=== PATIENT | male | born 1940 | race Caucasian/White ===

== ENCOUNTER → 2016-10-16 | Outpatient (CLI) | payer OTHER | LOC: BHFA 10:45 | PROVIDERS: ATTEND Internal Medicine Interventional Cardiology | DX: I25.10 Atherosclerotic heart disease of native coronary artery without angina pectoris (principal); Z95.0 Presence of cardiac pacemaker; Z95.5 Presence of coronary angioplasty implant and graft; R42 Dizziness and giddiness ==

== ENCOUNTER → 2016-11-28 | Outpatient (CLI) | payer OTHER | LOC: BHFA 10:15 | PROVIDERS: ATTEND Internal Medicine Cardiovascular Disease | DX: I25.10 Atherosclerotic heart disease of native coronary artery without angina pectoris (principal); R00.2 Palpitations; I10 Essential (primary) hypertension; E78.5 Hyperlipidemia, unspecified ==

== ENCOUNTER → 2016-11-30 | Outpatient (CLI) | payer OTHER | LOC: BHFA 09:30 | PROVIDERS: ATTEND Internal Medicine Cardiovascular Disease | DX: R00.2 Palpitations (principal) ==

== ENCOUNTER → 2017-04-10 | Outpatient (CLI) | payer OTHER | LOC: BMCIMAGING 08:25 | PROVIDERS: ATTEND Orthopaedic Surgery | DX: M17.11 Unilateral primary osteoarthritis, right knee (principal) ==

== ENCOUNTER → 2017-05-17 | Outpatient (CLI) | payer OTHER | LOC: FCPNEURO 21:00 | PROVIDERS: ATTEND Psychiatry & Neurology Sleep Medicine | DX: G47.52 REM sleep behavior disorder (principal); G47.33 Obstructive sleep apnea (adult) (pediatric) ==

== ENCOUNTER → 2017-07-23 | Outpatient (CLI) | payer OTHER | LOC: BHFA 11:00 | PROVIDERS: ATTEND Internal Medicine Interventional Cardiology | DX: I25.10 Atherosclerotic heart disease of native coronary artery without angina pectoris (principal); I10 Essential (primary) hypertension ==

== ENCOUNTER → 2017-08-08 | Outpatient (CLI) | payer OTHER | LOC: FIMAGING 12:16 | PROVIDERS: ATTEND Physician Assistant | DX: K59.00 Constipation, unspecified (principal); Z95.0 Presence of cardiac pacemaker ==

== ENCOUNTER → 2017-08-20 | Outpatient (CLI) | payer OTHER | LOC: FIMAGING 09:22 | PROVIDERS: ATTEND Internal Medicine | DX: K59.00 Constipation, unspecified (principal); I87.8 Other specified disorders of veins; M51.36 Other intervertebral disc degeneration, lumbar region; M25.551 Pain in right hip ==

== ENCOUNTER 2018-01-07 13:58 | Observation (INO) | payer OTHER ==
--- NOTE | 2018-01-07 14:13 | CPEKG ---
Heart Rate: 55 RR Interval: 1091 P-R Interval: 172 QRSD Interval: 168 QT Interval: 440 QTC Interval: 421 P [place]: -8 QRS [place]: -64 T Wave [place]: -19 EKG Severity - ABNORMAL ECG - EKG Impression: SINUS RHYTHM EKG Impression: RBBB AND LAFB Electronically Signed By: Pura Weiss 07-Jan-2018 20:30:59
[2018-01-07 14:35] LABS: PLATELET COUNT 197 10^3/uL (150-400)
--- NOTE | 2018-01-07 14:51 | EDPHY ---
H & P Stated Complaint: CHEST TIGHTNESS WITH CARDIAC HX Time Seen by Provider: 01/07/18 14:21 HPI/ROS: CHIEF COMPLAINT: Chest pressure HISTORY OF PRESENT ILLNESS: 77-year-old male with CAD, s/p coronary stenting x4 in 2013 presents with chest pressure. Doing usual activities around the house today when he had SSCP x 3, each episode lasted approximately 30 sec. Associated with some anxiety. He took Ativan 0.5 mg orally after the 1st episode without relief. ASA taken today. No other associated symptoms. No known alleviating or aggravating factors. He presented in 2013 after a syncopal episode and was diagnosed with coronary artery disease disease. Nuclear stress test and 2015 was unremarkable. No subsequent cardiac testing. No prior chest pain. REVIEW OF SYSTEMS: complete 10 point ROS negative except at noted in the HPI - Personal History Current Tetanus Diphtheria and Acellular Pertussis (TDAP): Yes Tetanus Vaccine Date: 2013 - Medical/Surgical History Hx Asthma: No Hx Chronic Respiratory Disease: No Hx Diabetes: No Hx Cardiac Disease: Yes Hx Renal Disease: No Hx Cirrhosis: No Hx Alcoholism: No Hx HIV/AIDS: No Hx Splenectomy or Spleen Trauma: No Other PMH: HTN, RBBB, BPH, APPY, BILAT HERNIA REPAIR, CAD, STENTS, PACEMAKER FOR A BISFASCICULAR BLOCK- 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 - Physical Exam Exam: General Appearance: Alert, pleasant Eyes: Pupils equal and round, no conjunctival pallor or injection ENT, Mouth: Mucous membranes moist Neck: Normal inspection Respiratory: Lungs are clear to auscultation Cardiovascular: Regular rate and rhythm Gastrointestinal: Abdomen is soft and nontender Neurological: A&O, nonfocal, normal gait Skin: Warm and dry Extremities: Normal inspection Psychiatric: Mood and affect normal Constitutional: Initial Vital Signs Temperature (C) 36.8 C 01/07/18 14:01 Heart Rate 60 01/07/18 14:01 Respiratory Rate 17 01/07/18 14:01 Blood Pressure 139/57 H 01/07/18 14:01 O2 Sat (%) 94 01/07/18 14:01 O2 Delivery Mode Room Air Allergies/Adverse Reactions: No Known Allergies Allergy (Verified 01/07/18 13:59) Home Medications: Medication Instructions Recorded Aspirin [Aspirin 81mg (*)] 81 mg PO DAILY 08/18/14 Clopidogrel Bisulfate [Plavix (*)] 75 mg PO DAILY 08/18/14 Finasteride [Proscar 5 MG (*)] 5 mg PO DAILY 08/18/14 Propylene Glycol [Systane Balance] 1 drop EACHEYE PRN PRN 08/18/14 Rosuvastatin Calcium [Crestor 20mg 20 mg PO DAILY 08/18/14 (*)] Solifenacin Succinate [Vesicare 5 5 mg PO DAILY 08/18/14 MG (*)] Tamsulosin HCl [Flomax 0.4 MG (*)] 0.4 mg PO DAILY 08/18/14 Valsartan [Diovan (*)] 40 mg PO DAILY 08/18/14 Acetaminophen [Tylenol 325mg (*)] 325 mg PO DAILY PRN 01/07/18 LORazepam [Ativan (*)] 0.25 mg PO DAILY PRN 01/07/18 Melatonin 6mg Cr 6 mg PO HS 01/07/18 Melatonin [Melatonin 3 MG (*)] 3 mg PO HS 01/07/18 Ranitidine HCl [Zantac] 150 mg PO BID 01/07/18 Temazepam 7.5 mg PO HS 01/07/18 cycloSPORINE 0.05% [Restasis Opht 1 drop EACHEYE BID 01/07/18 Drops(*)] Medical Decision Making - Diagnostics EKG Interpretation: EKG interpreted by me reveals sinus rhythm, rate 55, right bundle branch block and left anterior fascicular block. Similar to EKG dated 02/03/2016. Imaging Results: Imaging Impressions Chest X-Ray 01/07/18 14:22 Impression: No acute findings in the chest. Chest x-ray independently reviewed by me reveals no acute disease. ED Course/Re-evaluation: This patient with known CAD presents with episodic chest pain. Stat EKG reveals no evidence of ischemia. During my initial evaluation, the patient had a run of tachycardia. He was asymptomatic during this brief episode. On review of the toy designer, he was briefly in atrial fibrillation, with a ventricular rate of 150. Pacemaker was interrogated and he had no further dysrhythmia on review. The patient was asymptomatic throughout his emergency department stay. Initial troponin is 0. Given extensive coronary artery disease and no prior history of chest discomfort, I feel that he should be admitted for further evaluation. The hospitalist service was consulted for admission for chest pain. Differential Diagnosis: Differential diagnosis includes though it is not limited to pneumonia, pneumothorax, pulmonary embolism, aortic dissection, pericarditis, acute coronary syndrome. - Data Points Laboratory Results: Laboratory Results 01/07/18 14:16 01/07/18 14:16 01/07/18 01/07/18 01/07/18 14:21 14:16 14:16 WBC RBC Hgb Hct MCV MCH MCHC RDW Plt Count MPV Neut % (Auto) Lymph % (Auto) Andrews % (Auto) Eos % (Auto) Baso % (Auto) Nucleat RBC Rel Count Absolute Neuts (auto) Absolute Lymphs (auto) Absolute Monos (auto) Absolute Eos (auto) Absolute Basos (auto) Absolute Nucleated RBC Immature Gran % Immature Gran # PT Pending INR Pending Sodium 143 mEq/L mEq/L (135-145) Potassium 4.3 mEq/L mEq/L (3.3-5.0) Chloride 103 mEq/L mEq/L (97-110) Carbon Dioxide 25 mEq/l mEq/l (22-31) Anion Gap 15 mEq/L mEq/L (8-16) BUN 15 mg/dL mg/dL (7-23) Creatinine 0.9 mg/dL mg/dL (0.7-1.3) Estimated GFR > 60 Glucose 93 mg/dL mg/dL (70-100) Calcium 9.2 mg/dL mg/dL (8.5-10.4) POC Troponin I 0.00 ng/mL ng/mL (0.00-0.08) NT-Pro-B Natriuret Pep 85 pg/mL pg/mL (0-450) 01/07/18 14:16 WBC 8.49 10^3/uL 10^3/uL (3.80-9.50) RBC 4.87 10^6/uL 10^6/uL (4.40-6.38) Hgb 15.4 g/dL g/dL (13.7-17.5) Hct 45.1 % % (40.0-51.0) MCV 92.6 fL fL (81.5-99.8) MCH 31.6 pg pg (27.9-34.1) MCHC 34.1 g/dL g/dL (32.4-36.7) RDW 12.0 % % (11.5-15.2) Plt Count 197 10^3/uL 10^3/uL (150-400) MPV 10.4 fL fL (8.7-11.7) Neut % (Auto) 76.7 % H % (39.3-74.2) Lymph % (Auto) 14.3 % L % (15.0-45.0) Andrews % (Auto) 7.7 % % (4.5-13.0) Eos % (Auto) 1.1 % % (0.6-7.6) Baso % (Auto) 0.1 % L % (0.3-1.7) Nucleat RBC Rel Count 0.0 % % (0.0-0.2) Absolute Neuts (auto) 6.52 10^3/uL H 10^3/uL (1.70-6.50) Absolute Lymphs (auto) 1.21 10^3/uL 10^3/uL (1.00-3.00) Absolute Monos (auto) 0.65 10^3/uL 10^3/uL (0.30-0.80) Absolute Eos (auto) 0.09 10^3/uL 10^3/uL (0.03-0.40) Absolute Basos (auto) 0.01 10^3/uL L 10^3/uL (0.02-0.10) Absolute Nucleated RBC 0.00 10^3/uL 10^3/uL (0-0.01) Immature Gran % 0.1 % % (0.0-1.1) Immature Gran # 0.01 10^3/uL 10^3/uL (0.00-0.10) PT INR Sodium Potassium Chloride Carbon Dioxide Anion Gap BUN Creatinine Estimated GFR Glucose Calcium POC Troponin I NT-Pro-B Natriuret Pep Point of Care Test Results: Chemistry 01/07/18 14:21 POC Troponin I 0.00 ng/mL ng/mL (0.00-0.08) Departure - Departure Disposition: [facility] Inpatient Acute Clinical Impression: Chest pain Qualifiers: Chest pain type: precordial pain Qualified Code(s): R07.2 - Precordial pain CAD (coronary artery disease) Qualifiers: Coronary Disease-Associated Artery/Lesion type: [place] artery [place] vs. transplanted heart: [place] heart Associated angina: angina presence unspecified Qualified Code(s): I25.10 - Atherosclerotic heart disease of [place] coronary artery without angina pectoris Condition: Good
[2018-01-07] MEDS ORDERED: ONDANSETRON DISINTEGRATING 4 MG TAB PO PRN (15:08)
[2018-01-07] MEDS ORDERED: ONDANSETRON 4 MG/2 ML VIAL IVP PRN (15:08)
[2018-01-07] MEDS ORDERED: ACETAMINOPHEN 325 MG TAB PO PRN (15:08)
[2018-01-07] MEDS ORDERED: Propylene Glycol [Systane Balance] EACHEYE PRN (15:46)
[2018-01-07] MEDS ORDERED: LORazepam 0.5 MG TAB PO PRN (15:46)
[2018-01-07 15:58] LABS: INR 1.1 (0.83-1.16); PROTIME(PATIENT) 14.4 SEC (12.0-15.0)
[2018-01-07] MEDS ORDERED: ASPIRIN 325 MG TAB PO ONE (16:00)
--- NOTE | 2018-01-07 16:45 | GHP ---
[f rep st] HISTORY AND PHYSICAL DATE OF ADMISSION: 01/07/2018 CHIEF COMPLAINT: Chest pain. HISTORY OF PRESENT ILLNESS: The patient is a 77-year-old male with a history of coronary artery dise ase, status post 4 stents in 2013, at which time he presented with syncope, comes to the emergency de partment with chest pain. He has had 3 episodes of transient chest pain, which started at 7 o'clock this morning while at rest. He describes this pain as a severe tightness across his chest. There is no radiation. He has no associated diaphoresis, shortness of breath, or nausea. Each episode subsi ded within 1-2 minutes. He has had no recurrent chest pain, remains chest pain-free in the emergency department at this time. He also has a history of sleep apnea and uses CPAP. He is on dual antipla telet therapy. In addition, he has a pacemaker. In the emergency department, he was noted to have a brief run of sinus versus supraventricular tachycardia. His pacemaker provider relations representative has just arriv ed to interrogate his pacemaker, and he will be admitted to the PCU for further evaluation. PAST MEDICAL HISTORY: 1. Coronary artery disease, status post stent 4 stents in 2013. 2. Hypertension. 3. Obstructive sleep apnea, on CPAP. 4. Presence of a pacemaker. 5. Benign prostatic hypertrophy. 6. Anxiety. 7. History of PVCs, PACs. PAST SURGICAL HISTORY: Appendectomy, bilateral hernia repairs, hemorrhoidectomy. FAMILY HISTORY: His mother from ovarian cancer. His father from prostate cancer. His fat her also had history of coronary disease diagnosed in his 80s. 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 He denies alcohol or tobacco use. He lives independently with his . MEDICATIONS: Please see [facility] for completed outpatient medication list. ALLERGIES: He has no known drug allergies. REVIEW OF SYSTEMS: 10 point review of systems reviewed is negative, except as per HPI. OBJECTIVE: VITAL SIGNS: Temperature is 36.8, blood pressure 139/57, heart rate 60, respiratory rate 17. He is 94% on room air. GENERAL: Patient is awake, alert, oriented in no distress. HEENT: He ad is atraumatic, normocephalic. Pupils equal, round, reactive to light. Extraocular muscle intact. Oropharynx is clear. Mucous membranes are moist. Oropharynx is clear. NECK: Supple. No JVD. H EART: Regular rate and rhythm without murmur. LUNGS: Clear to auscultation bilaterally. ABDOMEN: Soft, nontender. Normoactive bowel sounds. EXTREMITIES: Without cyanosis, clubbing, or edema. NE UROLOGIC: Grossly nonfocal. LABORATORY/IMAGING: CBC is normal. INR is pending. Basic metabolic panel: Completely normal elect rolytes, creatinine 0.9. NT proBNP is 85. Initial troponin is negative. EKG is personally reviewed and interpreted, shows normal sinus rhythm with a right bundle branch bloc k. This is unchanged from his previous EKG. Chest x-ray is personally reviewed and interpreted, shows presence of dual lead pacemaker. Heart siz e is relatively normal. No acute cardiopulmonary abnormality is identified. ASSESSMENT/PLAN: The patient is a 77-year-old male with a history of coronary artery disease, status post stent who presents to the emergency room with chest pain. 1. Chest pain. His HEART score is 6. He will be admitted for cardiac rule out protocol. We will t rend his troponin. I will check an echocardiogram to evaluate for wall motion abnormality. His pace maker is currently being interrogated. I discussed the case with Cardiology. We will plan for a nuc lear medicine stress test in the morning if his troponins are negative. Keep him n.p.o. at midnight in case he has abnormal troponins or abnormal findings on his stress test as he may warrant angiogram . He is chest pain free at this time. We will continue dual antiplatelet therapy. Check lipid stat us and continue his outpatient statin. 2. Hypertension. His blood pressure is relatively well controlled. We will continue his outpatient valsartan. 3. Benign prostatic hypertrophy. Continue Proscar and tamsulosin. 4. Deep venous thrombosis prophylaxis. Will place sequential compression devices for now. CODE STATUS: Patient is full code. DISPOSITION: Patient admitted to observation status. I anticipate he may be a candidate for dischar ge home tomorrow if his cardiac workup is reassuring. Otherwise, will need to change to inpatient st [facility]. /[id number]/MODL
--- NOTE | 2018-01-07 16:53 | ECHO ---
[email or web address] [address] [address] Main: [phone] Fax: Transthoracic Echocardiogram Name: JAYNE CORONA MR#: [id number] Study Date: 01/07/2018 Study Time: 04:23 PM Date of : 1940 Age: 77 year(s) Height: 170.2 cm (67 in.) Weight: 72.58 kg (160 lb.) BSA: 1.84 m2 Gender: Male Examination: Echo Indication: Chest Pain, Pacemaker Image Quality: Contrast: Requested by: Heidy Vargas BP: / Heart Rate: Rhythm: Indication: Chest Pain, Pacemaker Procedure Staff Sexual Assault Response Coordinator: Jc Hill RDCS Reading Physician: Jc Wallace MD Requesting Provider: Conclusions: Normal size left ventricle. Normal global systolic LV function. EF is 74 %. The mitral valve is normal in appearance and function. There is no mitral valve regurgitation. Aortic valve is not well visualized. There is no aortic valve regurgitation. No aortic valve stenosis is present. When compared to the (08/26/13) study. There is no significant change. Measurements: Chambers Valvular Assessment AV/MV Valvular Assessment TV/PV Normal Normal Normal Name Value Range Name Value Range Name Value Range Ao Sari (MM): 3.3 cm (2.2 cm-3.7 AV Vmax: 1.02 m/s (1 m/s-1.7 PV Vmax: 0.96 m/s (0.6 m/s-0.9 cm) m/s) m/s) IVSd (2D): 1.0 cm (0.6 cm-1.1 AV maxP mmHg ( - ) PV PGmax: 4 mmHg ( - ) cm) LVOT Vmax: 0.63 m/s (0.7 m/s-1.1 LVDd (2D): 4.0 cm (4.2 cm-5.9 m/s) cm) MV E Vmax: 0.52 m/s ( - ) LVDs (2D): 2.3 cm (2.1 cm-4 MV A Vmax: 0.65 m/s ( - ) cm) MV E/A: 0.80 ( - ) LVPWd (2D): 1.1 cm (0.6 cm-1 cm) LVEF (2D): 74 (>=54 %) Continued Measurements: Chambers Valvular Assessment AV/MV Name Value Name Value Patient: JAYNE CORONA Study Date: 01/07/2018 Page 1 of 2 04:23 PM LADs Lon.0 cm MV E/E' Septal: 5.10 LA Area: 16.6 cm2 MV E/E' Lateral: 5.50 LA Volume: 48 ml LA Volume Index: 26.1 ml/m2 Findings: Left Ventricle: Normal size left ventricle. No LV hypertrophy. Normal global systolic LV function. EF is 74 %. No regional wall motion abnormality. Diastolic dysfunction is present. . Right Ventricle: Normal size right ventricle. Normal RV function. There is a pacemaker lead noted in the right ventricle. Left Atrium: The left atrium is normal in size. Right Atrium: The right atrium is normal in size. Mitral Valve: The mitral valve is normal in appearance and function. There is no mitral valve regurgitation. Aortic Valve: Aortic valve is not well visualized. There is no aortic valve regurgitation. No aortic valve stenosis is present. Tricuspid Valve: The tricuspid valve is normal in appearance and function. Pulmonic Valve: The pulmonic valve is normal in appearance and function. Aorta: The aorta is normal. Pericardium: No pericardial effusion. (No Signature Object) Patient: JAYNE CORONA Study Date: 01/07/2018 Page 2 of 2 04:23 PM [id number]
[2018-01-07] MEDS ORDERED: MELATONIN 3 MG TAB PO SCH ×2 (21:00→22:30)
[2018-01-07] MEDS ORDERED: MELATONIN 6 MG PO SCH (21:00)
[2018-01-07] MEDS: cycloSPORINE 0.05% 30 DROPERETTE/BOX EACHEYE SCH (22:24)
[2018-01-07] MEDS: FAMOTIDINE 20 MG TAB PO SCH (23:03)
[2018-01-07] MEDS: ZOLPIDEM TARTRATE 5 MG TAB PO SCH (23:03)
[2018-01-08] MEDS: ZOLPIDEM TARTRATE 5 MG TAB PO SCH (05:32)
[2018-01-08] MEDS ORDERED: SOLIFENACIN SUCCINATE 5 MG TAB PO SCH (09:00)
[2018-01-08] MEDS ORDERED: FINASTERIDE 5 MG TAB PO SCH (09:00)
[2018-01-08] MEDS ORDERED: TAMSULOSIN HCL 0.4 MG CAP PO SCH (09:00)
[2018-01-08] MEDS ORDERED: ROSUVASTATIN CALCIUM 20 MG TAB PO SCH (09:00)
[2018-01-08] MEDS ORDERED: VALSARTAN 40 MG TAB PO SCH (09:00)
[2018-01-08] MEDS ORDERED: CLOPIDOGREL BISULFATE 75 MG TAB PO SCH (09:00)
[2018-01-08] MEDS ORDERED: ASPIRIN 81 MG CHEWABLE TAB PO SCH (09:00)
[2018-01-08] MEDS: FAMOTIDINE 20 MG TAB PO SCH (09:21)
[2018-01-08] MEDS: cycloSPORINE 0.05% 30 DROPERETTE/BOX EACHEYE SCH (09:22)
[2018-01-08] MEDS ORDERED: REGADENOSON 0.4 MG/5 ML SYR IVP ONE (09:46)
--- NOTE | 2018-01-08 10:55 | CPR ---
[f rep st] NONINVASIVE CARDIAC PROCEDURE REPORT DATE OF PROCEDURE: 01/08/2018 PROCEDURE: Nuclear Lexiscan stress test. REASON FOR TEST: 1. Known coronary artery disease. 2. Chest discomfort. 3. History of past stents. DESCRIPTION OF PROCEDURE: Resting EKG shows a bradycardiac rate of 52 with right bundle branch block and left atrial block. Resting heart rate is 52, resting blood pressure 157/70, oxygen s aturation 98%. He is asymptomatic prior to starting the test. LEXISCAN STRESS TEST: Lexiscan was injected rapidly, followed by saline flush. Cardiolite was then injected, followed by saline flush. He did feel flushed with shortness of breath after the infusion. His blood pressure dropped to 111/56, heart rate 83, oxygen saturation 99%. His shortness of breat h started to dissipate after the 1-minute ramin post injection. He had no EKG changes. RECOVERY: He did spontaneously recover. His final blood pressure 133/56, recovery heart rate 80, ox ygen saturation 99%. There were no EKG changes during or after the test. At this time, he currently is stable for nuclear imaging. /[id number]/MODL
[2018-01-08] MEDS ORDERED: LORazepam 0.5 MG TAB PO PRN (12:14)
--- NOTE | 2018-01-08 15:19 | ASMTCMCOM ---
CM Note CM Note Notes: 01/08/2018 Case Management Note Pt admitted for chest pain with subsequent work up. There are no case management d/c needs identified d/t pt age, marital status and independence with ADL's prior to admission. There are no PT or OT evals ordered at this time. Case Management d/c poc: anticipating independent with follow up as directed. Case Management available if needs change. Date Signed: 01/08/2018 03:18 PM Electronically Signed By:Marija Huber RN
[2018-01-08 16:07] VITALS: BP 101/53
--- NOTE | 2018-01-08 17:34 | PDDCSUM ---
Discharge Summary Discharge Summary: DISCHARGE DIAGNOSES: -chest pain, uncertain etiology -rule out for myocardial infarction -no evidence of arrhythmia, heart failure PROCEDURES: * Lexiscan stress test with myocardial perfusion imaging, demonstrating no evidence of ischemia or myocardial dysfunction, question of possible old small infarction verses artifact in the inferior wall * Echocardiogram showing no wall motion abnormalities, preserved LV EF and no concerning valvular abnormalities * Interrogation of pacemaker showing 2 previously known episodes of brief V- tach that had been associated with use of high-dose Afrin but no other arrhythmias since September 24 HOSPITAL COURSE SUMMARY: This patient who has known coronary disease with several stents came into the hospital having had 3 episodes of pressure in the chest on the day of admission. Notably the patient's previous coronary syndrome included a syncopal spell without chest discomfort leading to assessment of his coronary arteries and stent placement. The patient did not have any syncopal type symptoms at this time. There were however 3 episodes of resting chest discomfort that were described as a pressure in the chest. The symptoms were resolved by the time he arrived here and did not recur here. He had no evidence of heart failure and had some degree of hypertension but otherwise normal blood pressures here. No arrhythmias were observed here. There is a question of possible SVT in the ER but all upon interrogation of his pacemaker there was no evidence of any arrhythmia in the recent past. We did see some old previously known nonsustained VT episodes back in August and these are known to have been associated with use of very high doses of Afrin on those days. There is no recurrence of arrhythmia since he stopped using Afrin in early September. The patient did rule out for myocardial infarction. We did echocardiogram which showed preserved LV EF, absence of any wall motion abnormalities, and absence of any particular valvular anomalies of concern. We also did a Lexiscan stress test. The images show again preserved LV EF with good wall motion throughout the LV, but with question of either small infarct verses artifact in the inferior wall. At this point the patient is stable for discharge to home. His risk of important cardiac events in the near future is very minimal. He is warned however that we do have occasional false negatives on nuclear imaging stress testing, and if he continues to have ongoing symptoms and no other cause is found he may need to consider further cardiac assessment. He will follow up with Dr. Juárez in the clinic in the next week or 2. PENDING TEST RESULTS: None MEDICATION CHANGES: None FOLLOW-UP PLAN: With Dr. Juárez next week Greater than 35 minutes bedside and care coordination time today
== END 2018-01-08 18:15 | disposition home or self-care (01) ==
LOC: F2W 16:55
PROVIDERS: ADMIT Hospitalist; ATTEND Internal Medicine
DX: R07.9 Chest pain, unspecified (principal); I25.10 Atherosclerotic heart disease of native coronary artery without angina pectoris; R94.31 Abnormal electrocardiogram [ECG] [EKG]; I10 Essential (primary) hypertension; N40.0 Benign prostatic hyperplasia without lower urinary tract symptoms; G47.33 Obstructive sleep apnea (adult) (pediatric); F41.9 Anxiety disorder, unspecified; Z82.49 Family history of ischemic heart disease and other diseases of the circulatory system; Z87.891 Personal history of nicotine dependence; Z95.0 Presence of cardiac pacemaker; Z95.5 Presence of coronary angioplasty implant and graft
CPT/HCPCS: 71046; 78452; 93005; 93017; 93306; 99285; A9500; G0378; J2785; 84484-PO